=== PATIENT | female | born 1940 | race Caucasian/White ===

== ENCOUNTER → 2022-10-16 12:20 | Outpatient (BNVA) | payer MEDICARE, SELFPAY | PROVIDERS: PCP Registered Nurse; Referring Provider Registered Nurse; Visit Provider Internal Medicine | DX: E89.0 Postprocedural hypothyroidism (principal); H81.10 Benign paroxysmal vertigo, unspecified ear; Z79.890 Hormone replacement therapy | CPT/HCPCS: 99204 ==

== ENCOUNTER 2022-12-18 08:59 | Outpatient (CLI) | payer MEDICARE, SELFPAY ==
[2022-12-18 09:55] LABS: Free T4 Free Thyroxine 1.99 ng/dL (0.82-1.77); Thyroid Stimulating Hormone 0.16 uIU/mL (0.27-4.20)
[2022-12-20 00:56] LABS: T3 Total 105 ng/dL (76-181)
== END 2022-12-18 09:00 | disposition home or self-care (01) ==
PROVIDERS: PCP Registered Nurse; Visit Provider Internal Medicine
DX: E89.0 Postprocedural hypothyroidism (principal)
CPT/HCPCS: 36415; 84439; 84443; 84480

== ENCOUNTER → 2023-01-01 13:24 | Outpatient (BNVA) | payer MEDICARE, SELFPAY | PROVIDERS: PCP Registered Nurse; Visit Provider Internal Medicine | DX: E03.9 Hypothyroidism, unspecified (principal); H81.10 Benign paroxysmal vertigo, unspecified ear; R79.89 Other specified abnormal findings of blood chemistry; Z79.890 Hormone replacement therapy | CPT/HCPCS: 99214 ==

== ENCOUNTER 2023-01-15 09:00 | Outpatient (CLI) | payer MEDICARE, SELFPAY ==
[2023-01-15 10:11] LABS: Free T4 Free Thyroxine 1.22 ng/dL (0.82-1.77)
[2023-01-17 17:29] LABS: Thyroid Peroxidase Antobodies 1 IU/mL (<9)
[2023-01-22 23:45] LABS: TSH Receptor Binding Antibody <1.00 IU/L (< OR = 2.00)
== END 2023-01-15 09:01 | disposition home or self-care (01) ==
LOC: LAB 09:03
PROVIDERS: PCP Registered Nurse; Visit Provider Internal Medicine
DX: E03.9 Hypothyroidism, unspecified (principal); H81.10 Benign paroxysmal vertigo, unspecified ear
CPT/HCPCS: 36415; 83516; 84439; 86376

== ENCOUNTER 2023-03-06 08:18 | Outpatient (CLI) | payer MEDICARE, SELFPAY ==
[2023-03-06 09:09] LABS: Free T4 Free Thyroxine 1.17 ng/dL (0.82-1.77); Thyroid Stimulating Hormone 15.84 uIU/mL (0.27-4.20)
[2023-03-08 05:30] LABS: T3 Total 68 ng/dL (76-181)
== END 2023-03-06 08:19 | disposition home or self-care (01) ==
PROVIDERS: PCP Registered Nurse; Visit Provider Internal Medicine
DX: E03.9 Hypothyroidism, unspecified (principal)
CPT/HCPCS: 84439; 84443; 84480

== ENCOUNTER → 2023-03-14 13:27 | Outpatient (BNVA) | payer MEDICARE, SELFPAY | PROVIDERS: PCP Registered Nurse; Visit Provider Internal Medicine | DX: E03.9 Hypothyroidism, unspecified (principal); R79.89 Other specified abnormal findings of blood chemistry; H81.10 Benign paroxysmal vertigo, unspecified ear; F41.9 Anxiety disorder, unspecified; Z79.890 Hormone replacement therapy | CPT/HCPCS: 99214 ==

== ENCOUNTER 2023-05-09 09:04 | Outpatient (CLI) | payer MEDICARE, SELFPAY ==
[2023-05-09 10:09] LABS: Free T4 Free Thyroxine 1.35 ng/dL (0.82-1.77); Thyroid Stimulating Hormone 2.67 uIU/mL (0.27-4.20)
== END 2023-05-09 09:05 | disposition home or self-care (01) ==
PROVIDERS: PCP Registered Nurse; Visit Provider Internal Medicine
DX: E03.9 Hypothyroidism, unspecified (principal); H81.10 Benign paroxysmal vertigo, unspecified ear; R79.89 Other specified abnormal findings of blood chemistry
CPT/HCPCS: 84439; 84443

== ENCOUNTER → 2023-05-16 09:26 | Outpatient (BNVA) | payer MEDICARE, SELFPAY | PROVIDERS: PCP Registered Nurse; Visit Provider Internal Medicine | DX: E03.9 Hypothyroidism, unspecified (principal); F41.9 Anxiety disorder, unspecified; R79.89 Other specified abnormal findings of blood chemistry; R53.83 Other fatigue; Z79.890 Hormone replacement therapy | CPT/HCPCS: 99214 ==

== ENCOUNTER → 2023-09-26 12:38 | Outpatient (BNVA) | payer MEDICARE, SELFPAY | PROVIDERS: PCP Registered Nurse; Visit Provider Podiatrist Foot & Ankle Surgery | DX: L60.3 Nail dystrophy (principal); I73.9 Peripheral vascular disease, unspecified | CPT/HCPCS: 11721; 99203 ==

== ENCOUNTER 2023-11-13 08:26 | Outpatient (CLI) | payer MEDICARE, SELFPAY ==
[2023-11-13 09:20] LABS: Free T4 Free Thyroxine 1.43 ng/dL (0.82-1.77); Thyroid Stimulating Hormone 2.86 uIU/mL (0.27-4.20)
== END 2023-11-13 08:27 | disposition home or self-care (01) ==
LOC: LAB 08:28
PROVIDERS: PCP Registered Nurse; Visit Provider Internal Medicine
DX: E03.9 Hypothyroidism, unspecified (principal); H81.10 Benign paroxysmal vertigo, unspecified ear; F41.9 Anxiety disorder, unspecified; R79.89 Other specified abnormal findings of blood chemistry
CPT/HCPCS: 36415; 84439; 84443

== ENCOUNTER → 2023-11-18 07:47 | Outpatient (BNVA) | payer MEDICARE, SELFPAY | PROVIDERS: PCP Registered Nurse; Visit Provider Internal Medicine | DX: E03.9 Hypothyroidism, unspecified (principal); H81.10 Benign paroxysmal vertigo, unspecified ear; R79.89 Other specified abnormal findings of blood chemistry; F41.9 Anxiety disorder, unspecified; R53.83 Other fatigue; Z79.890 Hormone replacement therapy | CPT/HCPCS: 99214 ==

== ENCOUNTER → 2023-12-23 10:40 | Outpatient (BNVA) | payer MEDICARE, SELFPAY | PROVIDERS: PCP Registered Nurse; Visit Provider Podiatrist Foot & Ankle Surgery | DX: L60.3 Nail dystrophy (principal); I73.9 Peripheral vascular disease, unspecified | CPT/HCPCS: 11721 ==

== ENCOUNTER → 2024-03-02 13:43 | Outpatient (BNVA) | payer MEDICARE, SELFPAY | PROVIDERS: PCP Registered Nurse; Visit Provider Podiatrist Foot & Ankle Surgery | DX: L60.3 Nail dystrophy (principal); I73.9 Peripheral vascular disease, unspecified | CPT/HCPCS: 11721 ==

== ENCOUNTER → 2024-05-04 13:37 | Outpatient (BNVA) | payer MEDICARE, SELFPAY | PROVIDERS: PCP Registered Nurse; Visit Provider Podiatrist Foot & Ankle Surgery | DX: L60.3 Nail dystrophy (principal); I73.9 Peripheral vascular disease, unspecified | CPT/HCPCS: 11721 ==

== ENCOUNTER → 2024-10-13 09:24 | Outpatient (BNVA) | payer MEDICARE, SELFPAY | PROVIDERS: PCP Registered Nurse; Visit Provider Nurse Practitioner Family | DX: D22.61 Melanocytic nevi of right upper limb, including shoulder (principal); L81.4 Other melanin hyperpigmentation; L57.8 Other skin changes due to chronic exposure to nonionizing radiation; L82.0 Inflamed seborrheic keratosis; L29.89 Other pruritus; L53.8 Other specified erythematous conditions; L91.8 Other hypertrophic disorders of the skin; R20.8 Other disturbances of skin sensation; L57.0 Actinic keratosis | CPT/HCPCS: 17000; 17110; 99203 ==

== ENCOUNTER → 2024-11-30 13:22 | Outpatient (BNVA) | payer MEDICARE, SELFPAY | PROVIDERS: PCP Registered Nurse; Visit Provider Podiatrist Foot & Ankle Surgery | DX: I73.9 Peripheral vascular disease, unspecified (principal); L60.3 Nail dystrophy | CPT/HCPCS: 11721 ==

== ENCOUNTER 2025-01-24 16:08 | Emergency (ER) | payer MEDICARE, SELFPAY ==
[2025-01-24 16:15] VITALS: BP 149/77; PULSE 84; RESP 16; TEMP 36.9; O2SAT 98; BMI 22.2
[2025-01-24 16:27] VITALS: BP 157/83; PULSE 80; O2SAT 95
--- NOTE | 2025-01-24 16:30 | CTR_ITS ---
PROCEDURE INFORMATION: Exam: CT Head Without Contrast Exam date and time: 01/24/2025 4:48 PM Age: 84 years old Clinical indication: Altered mental status/memory loss and dizziness; Additional info: Encephalopathy, altered mental status TECHNIQUE: Imaging protocol: Computed tomography of the head without contrast. Radiation optimization: All CT scans at this facility use at least one of these dose optimization techniques: automated exposure control; mA and/or kV adjustment per patient size (includes targeted exams where dose is matched to clinical indication); or iterative reconstruction. COMPARISON: No relevant prior studies available. RADIATION DOSE METRICS: Total DLP (mGy-cm): 1001.69 FINDINGS: Brain: Normal. No hemorrhage. Unremarkable white matter. No mass effect. Cerebral ventricles: No ventriculomegaly. Paranasal sinuses: Visualized sinuses are unremarkable. No fluid levels. Mastoid air cells: Visualized mastoid air cells are well aerated. Bones: Unremarkable. No acute fracture. Soft tissues: Unremarkable. CT/CT head wo con* [id number] IMPRESSION: No acute intracranial abnormality.
--- NOTE | 2025-01-24 16:30 | XRR_ITS ---
PROCEDURE INFORMATION: Exam: XR Chest Exam date and time: 01/24/2025 4:51 PM Age: 84 years old Clinical indication: PT presents with complaint of weakness, dizziness, confusion and tingling in her legs. PT states symptoms have been ongoing for several months with no change PT states she was seen in ED Saturday for same issues without dx. PT ambulated into treatment room, no gait issues noted. TECHNIQUE: Imaging protocol: Radiologic exam of the chest. Views: 1 view. COMPARISON: No relevant prior studies available. FINDINGS: Lungs: Unremarkable. No consolidation. Pleural spaces: Unremarkable. No pleural effusion. No pneumothorax. Heart/Mediastinum: Unremarkable. No cardiomegaly. Bones/joints: Proximal right humeral fracture, from limited view does not appear acute. The rest of the visualized osseous structures are intact. XR/XR chest 1V portable [id number] IMPRESSION: 1. No acute findings. 2. Proximal right humeral fracture, favored chronic.
--- NOTE | 2025-01-24 16:30 | ECG_ITS ---
Ensyn Peel Test Date: 2025-01-24 Pat Name: Duarte Lopez Department: Room: Gender: Female Tax Auditor: : 1940 Requested By: Maria Isabel Yusuf Order Number: [id number] Alyce MD: Elizabeth Friend M.D. Measurements Intervals [place] Rate: 69 P: 62 WI: 203 QRS: 91 QRSD: 98 T: 72 QT: 389 QTc: 418 Interpretive Statements SINUS RHYTHM WITH OCCASIONAL VENTRICULAR PREMATURE COMPLEXES BORDERLINE RIGHT AXIS DEVIATION [QRS AXIS > 90] INCOMPLETE RIGHT BUNDLE BRANCH BLOCK [90+ ms QRS DURATION, TERMINAL R IN V1/V2, 40+ ms S IN I/aVL/V4/V5/V6] No previous ECG available for comparison Electronically Signed On 01-24-2025 21:10:24 CDT by Elizabeth Friend M.D. [email or web address]
--- NOTE | 2025-01-24 16:33 | W.ED.DIZZY ---
Documented by User: Maria Isabel Felder MD 01/24/25 17:38 HPI - Dizziness General: Chief Complaint: Dizziness Stated Complaint: tingling down body with confusion Time Seen by Provider: 01/24/25 16:26 History of Present Illness: HPI Narrative: 84-year-old female with what sounds like some worsening dementia chronic kidney disease and peripheral vascular disease and hypothyroidism who presents to the emergency room with some worsening confusion and a headache. She says she has been having a right-sided headache and some tingling in her right leg. They are concerned that she might be more confused. She is been to the doctor and to the emergency room in [place] a couple times this last week. She had called her daughter with these complaints of the neurologic issues and daughter was concerned and told her to come to the emergency room and she drove down from [place]. Related Data Home Medications ?Medication ?Instructions ?Recorded ?Confirmed bupropion HCl 150 mg tablet,12 hr 150 mg PO BID 10/16/22 01/24/25 sustained-release (Wellbutrin SR) hydroxyzine HCl 10 mg tablet 10 mg PO DAILY 01/24/25 01/24/25 levothyroxine 75 mcg tablet 75 mcg PO QAM 01/24/25 01/24/25 (Synthroid) memantine 5 mg tablet 5 mg PO BID 01/24/25 01/24/25 metoprolol tartrate 25 mg tablet 25 mg PO DAILY 01/24/25 01/24/25 Allergies Allergy/AdvReac Type Severity Reaction Status Date / Time hydromorphone Allergy Intermediate ADR-Nausea Verified 11/30/24 13:24 lovastatin Allergy Intermediate ADR-Cramping Verified 11/30/24 13:24 of the Muscles simvastatin Allergy Intermediate ADR-Cramping Verified 11/30/24 13:24 of the Muscles alendronate sodium Allergy Unknown Verified 11/30/24 13:24 sertraline Allergy Unknown Verified 11/30/24 13:24 Review of Systems Narrative: Constitutional symptoms: Negative except as documented in HPI. Skin symptoms: Negative except as documented in HPI. Eye symptoms: Negative except as documented in HPI. ENMT symptoms: Negative except as documented in HPI. Respiratory symptoms: Negative except as documented in HPI. Cardiovascular symptoms: Negative except as documented in HPI. Gastrointestinal symptoms: Negative except as documented in HPI. Genitourinary symptoms: Negative except as documented in HPI. Musculoskeletal symptoms: Negative except as documented in HPI. Neurologic symptoms: Negative except as documented in HPI. Psychiatric symptoms: Negative except as documented in HPI. Endocrine symptoms: Negative except as documented in HPI. [facility] ED PFSH: Medical History Stage 3 chronic kidney disease Peripheral arterial occlusive disease Hypothyroidism Surgical History H/O thyroidectomy Family History Other Cancer Social History Smoking and tobacco/nicotine status: never used tobacco/nicotine Physical Exam Narrative: EXAM NARRATIVE: General: Alert, no acute distress. Skin: Warm, dry. Head: Normocephalic, atraumatic. Neck: Supple, trachea midline. Eye: Extraocular movements are intact. Ears, nose, mouth and throat: mucosa moist. Cardiovascular: Regular, Normal peripheral perfusion. Respiratory: Lungs are clear to auscultation, respirations are non-labored, breath sounds are equal, Symmetrical chest wall expansion. Gastrointestinal: Soft, Nontender, Non distended Musculoskeletal: Normal ROM, no deformity. Neurological: Alert and oriented, No focal neurological deficit observed. Patient does have some mild confusion with relation to what is been going on but overall is alert and oriented and has no deficits. Psychiatric: Cooperative, appropriate mood & affect. Course Vital Signs: Vital signs: Vital Signs Temperature 98.5 F 01/24/25 16:15 Pulse Rate 66 01/24/25 18:56 Respiratory Rate 16 01/24/25 16:15 Blood Pressure 122/65 01/24/25 18:56 Pulse Oximetry 100 01/24/25 18:56 Oxygen Delivery Me thod Room Air 01/24/25 16:15 MDM - Dizziness Medical Decision Making Medical decision making: Differential diagnosis including but not limited to and based on the above HPI, review of systems and physical exam: In this patient with altered mental status: Stroke. Hypoglycemia. Metabolic encephalopathy. Infections such as pneumonia, urinary tract infection, Covid-19, Influenza. Electrolyte abnormalities such as hypernatremia. Renal failure / uremia. Hepatic encephalopathy. Hypoxemia. Hypercapnic respiratory failure. Psychosis. Drug or alcohol intoxication. Medication overdose. Orders placed to evaluate differential diagnosis based on the above differential, HPI and physical exam NIH Stroke Scale/Score (NIHSS) from [email or web address] on 01/24/2025 All calculations should be rechecked by clinician prior to use RESULT SUMMARY: 0 points NIH Stroke Scale INPUTS: 1A: Level of consciousness ?> 0 = Alert; keenly responsive 1B: Ask month and age ?> 0 = Both questions right 1C: 'Blink eyes' & 'squeeze hands' ?> 0 = Performs both tasks 2: Horizontal extraocular movements ?> 0 = Normal 3: Visual singleton ?> 0 = No visual loss 4: Facial palsy ?> 0 = Normal symmetry 5A: Left arm motor drift ?> 0 = No drift for 10 seconds 5B: Right arm motor drift ?> 0 = No drift for 10 seconds 6A: Left leg motor drift ?> 0 = No drift for 5 seconds 6B: Right leg motor drift ?> 0 = No drift for 5 seconds 7: Limb Ataxia ?> 0 = No ataxia 8: Sensation ?> 0 = Normal; no sensory loss 9: Language/aphasia ?> 0 = Normal; no aphasia 10: Dysarthria ?> 0 = Normal 11: Extinction/inattention ?> 0 = No abnormality CT head: No acute intracranial process. no intracranial hemorrhage, no evidence of infarct. no evidence of acute fracture.This was reviewed and interpreted by myself the ER physician. Chest x-ray: No acute process. No infiltrate. No pneumothorax. This was reviewed and interpreted by myself the emergency room physician. I also reviewed the radiology report. EKG: Time 1635. Rate 69. Normal sinus rhythm, No ST-T changes, PVCs, right bundle branch block, This was reviewed and interpreted by myself the ER physician at 1640 Lab Review: Laboratory results were reviewed and interpreted by myself the emergency room physician. So far lab work is unremarkable. No leukocytosis. No anemia. No renal failure. Patient care transitioned to Dr. Johnathon Ramsey at shift change. Patient awaiting urinalysis. Have discussed with family that if we do not find any underlying conditions that might be worsening her possible dementia that likely she can be evaluated by her primary or sent to a tumbling and rolling supervisor for possible dementia and that she does not need inpatient geriatric psychiatric transfer at this point. She is not a danger to herself. She is not wandering. Lab Data 01/24/25 16:43 01/24/25 16:43 Radiology Impressions Chest X-Ray 01/24/25 16:30 IMPRESSION: 1. No acute findings. 2. Proximal right humeral fracture, favored chronic. Head CT 01/24/25 16:30 IMPRESSION: No acute intracranial abnormality. Laboratory Results WBC 10.58 10^3/uL (3.29-11.43) 01/24/25 16:43 RBC 4.48 10^6/uL (3.85-5.65) 01/24/25 16:43 Hgb 13.60 g/dL (11.27-16.99) 01/24/25 16:43 Hct 41.6 % (36-47) 01/24/25 16:43 MCV 92.9 fl (85-98) 01/24/25 16:43 MCH 30.4 pg (27-33) 01/24/25 16:43 MCHC 32.7 g/dL (30-55) 01/24/25 16:43 RDW 12.8 % (12.1-15.1) 01/24/25 16:43 Plt Count 235 10^3/cmm (157-399) 01/24/25 16:43 MPV 10.0 fL (7.4-10.4) 01/24/25 16:43 Neut % (Auto) 65.9 % 01/24/25 16:43 Lymph % (Auto) 27.0 % 01/24/25 16:43 [place] % (Auto) 6.0 % 01/24/25 16:43 Eos % (Auto) 0.2 % 01/24/25 16:43 Baso % (Auto) 0.3 % 01/24/25 16:43 Neut # (Auto) 6.97 10^3/uL (1.8-7.7) 01/24/25 16:43 Lymph # (Auto) 2.9 10^3/uL (0.8-4.8) 01/24/25 16:43 [place] # (Auto) 0.6 10^3/uL (0.2-0.9) 01/24/25 16:43 Eos # (Auto) 0.0 10^3/uL (0.0-0.8) 01/24/25 16:43 Baso # (Auto) 0.0 10^3/uL (0.0-0.1) 01/24/25 16:43 Nucleated RBC % (auto) 0 % 01/24/25 16:43 Nucleated RBCs # 0.0 /100WBC 01/24/25 16:43 Sodium 140 mmol/L (136-145) 01/24/25 16:43 Potassium 3.5 mmol/L (3.5-5.1) 01/24/25 16:43 Chloride 102 mmol/L (98-107) 01/24/25 16:43 Carbon Dioxide 26 mmol/L (22-29) 01/24/25 16:43 Anion Gap 15.5 (5-19) 01/24/25 16:43 BUN 22 mg/dL (8-23) 01/24/25 16:43 Creatinine 0.8 mg/dL (0.5-0.9) 01/24/25 16:43 GFR Calculation Not Reportable 01/24/25 16:43 Glucose 122 mg/dL (65-115) H 01/24/25 16:43 Calculated Osmolality 295 mOsm/kg (285-295) 01/24/25 16:43 Calcium 9.7 mg/dL (8.5-10.5) 01/24/25 16:43 Total Bilirubin 0.4 mg/dL (0.15-1.2) 01/24/25 16:43 AST 15 U/L (0-32) 01/24/25 16:43 ALT 12 U/L (0-33) 01/24/25 16:43 Alkaline Phosphatase 104 U/L (35-105) 01/24/25 16:43 Total Protein 7.0 g/dL (6.6-8.7) 01/24/25 16:43 Albumin 4.4 g/dL (3.5-5.2) 01/24/25 16:43 Globulin 2.6 g/dL (1.3-4.6) 01/24/25 16:43 TSH 2.49 uIU/mL (0.27-4.20) 01/24/25 16:43 Urine Color Yellow (Yellow) 01/24/25 17:55 Urine Appearance Clear (CLEAR) 01/24/25 17:55 Urine pH 5 (5-7) 01/24/25 17:55 Ur Specific [place] 1.025 (1.005-1.030) 01/24/25 17:55 Urine Protein Neg (Negative) 01/24/25 17:55 Urine Glucose (UA) Norm (Normal) 01/24/25 17:55 Urine Ketones 1+ (Negative) H 01/24/25 17:55 Urine Blood 2+ (Negative) H 01/24/25 17:55 Urine Nitrate Negative (Negative) 01/24/25 17:55 Urine Bilirubin Neg (Negative) 01/24/25 17:55 Urine Urobilinogen Norm mg/dL (Negative) 01/24/25 17:55 Ur Leukocyte Esterase Trace (Negative) H 01/24/25 17:55 Urine RBC 0-2 /hpf (0-2) 01/24/25 17:55 Urine WBC 0-5 /hpf (0-5) 01/24/25 17:55 Ur Squamous Epith Cells 6-10 /hpf (0-5) 01/24/25 17:55 Amorphous Sediment Not Reportable 01/24/25 17:55 Urine Bacteria None seen /hpf (NONE) 01/24/25 17:55 Hyaline Casts 0.81 /lpf 01/24/25 17:55 Salicylates < 0.3 mg/dL (3-10) L 01/24/25 16:43 Urine Opiates Screen Negative ng/mL (Negative) 01/24/25 17:55 Acetaminophen < 5.0 ug/mL (10-30) L 01/24/25 16:43 Ur Barbiturates Screen Negative ng/mL (Negative) 01/24/25 17:55 Ur Phencyclidine Scrn Negative ng/mL (Negative) 01/24/25 17:55 Ur Amphetamines Screen Negative ng/mL (Negative) 01/24/25 17:55 U Benzodiazepines Scrn Negative ng/mL (Negative) 01/24/25 17:55 Urine Cocaine Screen Negative ng/mL (Negative) 01/24/25 17:55 U Marijuana (THC) Screen Negative ng/mL (Negative) 01/24/25 17:55 Ethyl Alcohol < 10 mg/dL (0-10) 01/24/25 16:43 Influenza A (PCR) Negative (Negative) 01/24/25 16:43 Influenza Type B (PCR) Negative (Negative) 01/24/25 16:43 RSV (PCR) Negative (Negative) 01/24/25 16:43 SARS-CoV-2 (PCR) Negative (Negative) 01/24/25 16:43 Discharge Plan Discharge Patient Disposition: Home Clinical Impression: Change in mental status, Dizziness Condition: Stable Prescriptions: No Action bupropion HCl [Wellbutrin SR] 150 mg tablet sustained-release 12 hr 150 mg PO BID levothyroxine [Synthroid] 75 mcg tablet 75 mcg PO QAM hydroxyzine HCl 10 mg tablet 10 mg PO DAILY memantine 5 mg tablet 5 mg PO BID metoprolol tartrate 25 mg tablet 25 mg PO DAILY Discharge Orders: Discharge ED (Routine); Ordered 01/24/25 Ordered By: Johnathon Ramsey Referrals: Nevaeh Keenan [Primary Care Provider] - 1-3 days Patient Instructions: Altered Mental Status (ED), Dizziness (ED), Opioid Safety, Pain Management Activity Restrictions/Additional Instructions: Call your doctor tomorrow for an outpatient follow-up appointment. Let them know you were seen here, as further outpatient workup may be needed. Return for any worsening or new concerns. Print Language: Prydeinig Coding Level of Care Code ED Double Head Machine Operator for Chg Fwd Documented by User: Johnathon Ramsey DO 01/24/25 20:34 HPI - Dizziness General: Chief Complaint: Dizziness Stated Complaint: tingling down body with confusion Time Seen by Provider: 01/24/25 16:26 Related Data Home Medications ?Medication ?Instructions ?Recorded ?Confirmed bupropion HCl 150 mg tablet,12 hr 150 mg PO BID 10/16/22 01/24/25 sustained-release (Wellbutrin SR) hydroxyzine HCl 10 mg tablet 10 mg PO DAILY 01/24/25 01/24/25 levothyroxine 75 mcg tablet 75 mcg PO QAM 01/24/25 01/24/25 (Synthroid) memantine 5 mg tablet 5 mg PO BID 01/24/25 01/24/25 metoprolol tartrate 25 mg tablet 25 mg PO DAILY 01/24/25 01/24/25 Allergies Allergy/AdvReac Type Severity Reaction Status Date / Time hydromorphone Allergy Intermediate ADR-Nausea Verified 11/30/24 13:24 lovastatin Allergy Intermediate ADR-Cramping Verified 11/30/24 13:24 of the Muscles simvastatin Allergy Intermediate ADR-Cramping Verified 11/30/24 13:24 of the Muscles alendronate sodium Allergy Unknown Verified 11/30/24 13:24 sertraline Allergy Unknown Verified 11/30/24 13:24 PFSH ED PFSH: Medical History Stage 3 chronic kidney disease Peripheral arterial occlusive disease Hypothyroidism Surgical History H/O thyroidectomy Family History Other Cancer Social History Smoking and tobacco/nicotine status: never used tobacco/nicotine Course Vital Signs: Vital signs: Vital Signs Temperature 98.5 F 01/24/25 16:15 Pulse Rate 66 01/24/25 18:56 Respiratory Rate 16 01/24/25 16:15 Blood Pressure 122/65 01/24/25 18:56 Pulse Oximetry 100 01/24/25 18:56 Oxygen Delivery Me thod Room Air 01/24/25 16:15 MDM - Dizziness Medical Decision Making Medical decision making: Differential diagnosis including but not limited to and based on the above HPI, review of systems and physical exam: In this patient with altered mental status: Stroke. Hypoglycemia. Metabolic encephalopathy. Infections such as pneumonia, urinary tract infection, Covid-19, Influenza. Electrolyte abnormalities such as hypernatremia. Renal failure / uremia. Hepatic encephalopathy. Hypoxemia. Hypercapnic respiratory failure. Psychosis. Drug or alcohol intoxication. Medication overdose. Orders placed to evaluate differential diagnosis based on the above differential, HPI and physical exam NIH Stroke Scale/Score (NIHSS) from [employer] on 01/24/2025 All calculations should be rechecked by clinician prior to use RESULT SUMMARY: 0 points NIH Stroke Scale INPUTS: 1A: Level of consciousness ?> 0 = Alert; keenly responsive 1B: Ask month and age ?> 0 = Both questions right 1C: 'Blink eyes' & 'squeeze hands' ?> 0 = Performs both tasks 2: Horizontal extraocular movements ?> 0 = Normal 3: Visual singleton ?> 0 = No visual loss 4: Facial palsy ?> 0 = Normal symmetry 5A: Left arm motor drift ?> 0 = No drift for 10 seconds 5B: Right arm motor drift ?> 0 = No drift for 10 seconds 6A: Left leg motor drift ?> 0 = No drift for 5 seconds 6B: Right leg motor drift ?> 0 = No drift for 5 seconds 7: Limb Ataxia ?> 0 = No ataxia 8: Sensation ?> 0 = Normal; no sensory loss 9: Language/aphasia ?> 0 = Normal; no aphasia 10: Dysarthria ?> 0 = Normal 11: Extinction/inattention ?> 0 = No abnormality CT head: No acute intracranial process. no intracranial hemorrhage, no evidence of infarct. no evidence of acute fracture.This was reviewed and interpreted by myself the ER physician. Chest x-ray: No acute process. No infiltrate. No pneumothorax. This was reviewed and interpreted by myself the emergency room physician. I also reviewed the radiology report. EKG: Time 1635. Rate 69. Normal sinus rhythm, No ST-T changes, PVCs, right bundle branch block, This was reviewed and interpreted by myself the ER physician at 1640 Lab Review: Laboratory results were reviewed and interpreted by myself the emergency room physician. So far lab work is unremarkable. No leukocytosis. No anemia. No renal failure. Patient care transitioned to Dr. Johnathon Ramsey at shift change. Patient awaiting urinalysis. Have discussed with family that if we do not find any underlying conditions that might be worsening her possible dementia that likely she can be evaluated by her primary or sent to a tumbling and rolling supervisor for possible dementia and that she does not need inpatient geriatric psychiatric transfer at this point. She is not a danger to herself. She is not wandering. Patient picked up at shift change. Urinalysis is negative for urinary tract infection. No definite cause of dizziness, mental status change identified. As above, outpatient follow-up is warranted. Inpatient treatment not clinically warranted at this point. She may return for any worsening symptoms. Lab Data 01/24/25 16:43 01/24/25 16:43 Radiology Impressions Chest X-Ray 01/24/25 16:30 IMPRESSION: 1. No acute findings. 2. Proximal right humeral fracture, favored chronic. Head CT 01/24/25 16:30 IMPRESSION: No acute intracranial abnormality. Laboratory Results WBC 10.58 10^3/uL (3.29-11.43) 01/24/25 16:43 RBC 4.48 10^6/uL (3.85-5.65) 01/24/25 16:43 Hgb 13.60 g/dL (11.27-16.99) 01/24/25 16:43 Hct 41.6 % (36-47) 01/24/25 16:43 MCV 92.9 fl (85-98) 01/24/25 16:43 MCH 30.4 pg (27-33) 01/24/25 16:43 MCHC 32.7 g/dL (30-55) 01/24/25 16:43 RDW 12.8 % (12.1-15.1) 01/24/25 16:43 Plt Count 235 10^3/cmm (157-399) 01/24/25 16:43 MPV 10.0 fL (7.4-10.4) 01/24/25 16:43 Neut % (Auto) 65.9 % 01/24/25 16:43 Lymph % (Auto) 27.0 % 01/24/25 16:43 [place] % (Auto) 6.0 % 01/24/25 16:43 Eos % (Auto) 0.2 % 01/24/25 16:43 Baso % (Auto) 0.3 % 01/24/25 16:43 Neut # (Auto) 6.97 10^3/uL (1.8-7.7) 01/24/25 16:43 Lymph # (Auto) 2.9 10^3/uL (0.8-4.8) 01/24/25 16:43 [place] # (Auto) 0.6 10^3/uL (0.2-0.9) 01/24/25 16:43 Eos # (Auto) 0.0 10^3/uL (0.0-0.8) 01/24/25 16:43 Baso # (Auto) 0.0 10^3/uL (0.0-0.1) 01/24/25 16:43 Nucleated RBC % (auto) 0 % 01/24/25 16:43 Nucleated RBCs # 0.0 /100WBC 01/24/25 16:43 Sodium 140 mmol/L (136-145) 01/24/25 16:43 Potassium 3.5 mmol/L (3.5-5.1) 01/24/25 16:43 Chloride 102 mmol/L (98-107) 01/24/25 16:43 Carbon Dioxide 26 mmol/L (22-29) 01/24/25 16:43 Anion Gap 15.5 (5-19) 01/24/25 16:43 BUN 22 mg/dL (8-23) 01/24/25 16:43 Creatinine 0.8 mg/dL (0.5-0.9) 01/24/25 16:43 GFR Calculation Not Reportable 01/24/25 16:43 Glucose 122 mg/dL (65-115) H 01/24/25 16:43 Calculated Osmolality 295 mOsm/kg (285-295) 01/24/25 16:43 Calcium 9.7 mg/dL (8.5-10.5) 01/24/25 16:43 Total Bilirubin 0.4 mg/dL (0.15-1.2) 01/24/25 16:43 AST 15 U/L (0-32) 01/24/25 16:43 ALT 12 U/L (0-33) 01/24/25 16:43 Alkaline Phosphatase 104 U/L (35-105) 01/24/25 16:43 Total Protein 7.0 g/dL (6.6-8.7) 01/24/25 16:43 Albumin 4.4 g/dL (3.5-5.2) 01/24/25 16:43 Globulin 2.6 g/dL (1.3-4.6) 01/24/25 16:43 TSH 2.49 uIU/mL (0.27-4.20) 01/24/25 16:43 Urine Color Yellow (Yellow) 01/24/25 17:55 Urine Appearance Clear (CLEAR) 01/24/25 17:55 Urine pH 5 (5-7) 01/24/25 17:55 Ur Specific [place] 1.025 (1.005-1.030) 01/24/25 17:55 Urine Protein Neg (Negative) 01/24/25 17:55 Urine Glucose (UA) Norm (Normal) 01/24/25 17:55 Urine Ketones 1+ (Negative) H 01/24/25 17:55 Urine Blood 2+ (Negative) H 01/24/25 17:55 Urine Nitrate Negative (Negative) 01/24/25 17:55 Urine Bilirubin Neg (Negative) 01/24/25 17:55 Urine Urobilinogen Norm mg/dL (Negative) 01/24/25 17:55 Ur Leukocyte Esterase Trace (Negative) H 01/24/25 17:55 Urine RBC 0-2 /hpf (0-2) 01/24/25 17:55 Urine WBC 0-5 /hpf (0-5) 01/24/25 17:55 Ur Squamous Epith Cells 6-10 /hpf (0-5) 01/24/25 17:55 Amorphous Sediment Not Reportable 01/24/25 17:55 Urine Bacteria None seen /hpf (NONE) 01/24/25 17:55 Hyaline Casts 0.81 /lpf 01/24/25 17:55 Salicylates < 0.3 mg/dL (3-10) L 01/24/25 16:43 Urine Opiates Screen Negative ng/mL (Negative) 01/24/25 17:55 Acetaminophen < 5.0 ug/mL (10-30) L 01/24/25 16:43 Ur Barbiturates Screen Negative ng/mL (Negative) 01/24/25 17:55 Ur Phencyclidine Scrn Negative ng/mL (Negative) 01/24/25 17:55 Ur Amphetamines Screen Negative ng/mL (Negative) 01/24/25 17:55 U Benzodiazepines Scrn Negative ng/mL (Negative) 01/24/25 17:55 Urine Cocaine Screen Negative ng/mL (Negative) 01/24/25 17:55 U Marijuana (THC) Screen Negative ng/mL (Negative) 01/24/25 17:55 Ethyl Alcohol < 10 mg/dL (0-10) 01/24/25 16:43 Influenza A (PCR) Negative (Negative) 01/24/25 16:43 Influenza Type B (PCR) Negative (Negative) 01/24/25 16:43 RSV (PCR) Negative (Negative) 01/24/25 16:43 SARS-CoV-2 (PCR) Negative (Negative) 01/24/25 16:43 All radiology interpretation(s) finalized by discharge Discharge Plan Discharge Patient Disposition: Home Clinical Impression: Change in mental status, Dizziness Condition: Stable Prescriptions: No Action bupropion HCl [Wellbutrin SR] 150 mg tablet sustained-release 12 hr 150 mg PO BID levothyroxine [Synthroid] 75 mcg tablet 75 mcg PO QAM hydroxyzine HCl 10 mg tablet 10 mg PO DAILY memantine 5 mg tablet 5 mg PO BID metoprolol tartrate 25 mg tablet 25 mg PO DAILY Discharge Orders: Discharge ED (Routine); Ordered 01/24/25 Ordered By: Johnathon Ramsey Referrals: Nevaeh Keenan [Primary Care Provider] - 1-3 days Patient Instructions: Altered Mental Status (ED), Dizziness (ED), Opioid Safety, Pain Management Activity Restrictions/Additional Instructions: Call your doctor tomorrow for an outpatient follow-up appointment. Let them know you were seen here, as further outpatient workup may be needed. Return for any worsening or new concerns. Print Language: Prydeinig Coding Level of Care Code ED Double Head Machine Operator for Dimitri Anguiano
[2025-01-24 16:48] LABS: Basophils % 0.3 %; Eosinophils % 0.2 %; Hematocrit 41.6 % (36-47); Lymphocytes # 2.9 10^3/uL (0.8-4.8); Mean Corpuscular HGB Conc 32.7 g/dL (30-55); Mean Corpuscular Hemoglobin 30.4 pg (27-33); Mean Corpuscular Volume 92.9 fl (85-98); Monocytes # 0.6 10^3/uL (0.2-0.9); Neutrophils # 6.97 10^3/uL (1.8-7.7); Neutrophils % 65.9 %; Nucleated Red Blood Cells % 0 %; Platelet Count 235 10^3/cmm (157-399); Red Blood Count 4.48 10^6/uL (3.85-5.65); Red Cell Distribution Width 12.8 % (12.1-15.1); White Blood Count 10.58 10^3/uL (3.29-11.43)
[2025-01-24 16:57] VITALS: PULSE 65; O2SAT 98
[2025-01-24 17:21] LABS: Alanine Aminotransferase 12 U/L (0-33); Albumin Level 4.4 g/dL (3.5-5.2); Alkaline Phosphatase 104 U/L (35-105); Anion Gap 15.5 (5-19); Aspartate Amino Transferase 15 U/L (0-32); Blood Urea Nitrogen 22 mg/dL (8-23); Calcium 9.7 mg/dL (8.5-10.5); Carbon Dioxide 26 mmol/L (22-29); Chloride 102 mmol/L (98-107); Creatinine Clr Calc Pharmacy 50.9088; Globulin 2.6 g/dL (1.3-4.6); Glucose 122 mg/dL (65-115); Osmolality Calculated 295 mOsm/kg (285-295); Potassium 3.5 mmol/L (3.5-5.1); Sodium 140 mmol/L (136-145); Thyroid Stimulating Hormone 2.49 uIU/mL (0.27-4.20); Total Bilirubin 0.4 mg/dL (0.15-1.2)
[2025-01-24 17:22] LABS: Acetaminophen < 5.0 ug/mL (10-30); Alcohol Level < 10 mg/dL (0-10); Salicylate < 0.3 mg/dL (3-10)
[2025-01-24 17:27] VITALS: PULSE 68; O2SAT 98
[2025-01-24 17:48] LABS: Influenza A NEGATIVE (Negative); Influenza B NEGATIVE (Negative); Respiratory Syncytial Virus Ce NEGATIVE (Negative); SARS-CoV-2 PCR NEGATIVE (Negative)
[2025-01-24 17:57] VITALS: BP 168/65; PULSE 76; O2SAT 100
[2025-01-24 18:05] LABS: Bacteria Urine None Seen /hpf; Hyaline Casts Urine 0.81 /lpf; RBC Urine 0-2 /hpf (0-2); WBC Urine 0-5 /hpf (0-5)
[2025-01-24 18:08] LABS: Bilirubin Urine Neg (Negative); Blood Urine 2+ (Negative); Glucose Urine UA Norm (Normal); Ketones Urine 1+ (Negative); Leukocyte Esterase Urine Trace (Negative); Nitrate Urine Negative (Negative); Protein Urine Neg (Negative); Specific Gravity, Urine 1.025 (1.005-1.030); Urine Appearance Clear (CLEAR); Urine Color Yellow (Yellow); Urobilinogen Urine Norm (Negative); pH Urine 5 (5-7)
[2025-01-24 18:19] LABS: Amphetamines Screen Urine Negative (Negative); Barbiturates Screen Urine Negative (Negative); Benzodiazepines Screen Urine Negative (Negative); Cocaine Screen Urine Negative (Negative); Opiate Screen Urine Negative (Negative); PCP Screen Urine Negative (Negative); THC Screen Urine Negative (Negative)
[2025-01-24 18:56] VITALS: BP 122/65; PULSE 66; O2SAT 100
== END 2025-01-24 18:57 | disposition home or self-care (01) ==
PROVIDERS: Emergency Medicine; Emergency Provider Emergency Medicine; PCP Registered Nurse
DX: R41.82 Altered mental status, unspecified (principal); R42 Dizziness and giddiness; Z11.52 Encounter for screening for COVID-19; N18.30 Chronic kidney disease, stage 3 unspecified
CPT/HCPCS: 36415; 70450; 71045; 80053; 80306; 80307; 81001; 84443; 85025; 87637; 93005; 99285

== ENCOUNTER 2025-03-17 10:07 | Outpatient (CLI) | payer MEDICARE, SELFPAY ==
--- NOTE | 2025-03-17 10:10 | FL_ITS ---
WS: [id number] FL barium swallow modifd [id number] REASON FOR EXAM: Other dysphagia FLUOROSCOPY TIME: 4min [id number] # OF SPOT FILMS: 0 TECHNIQUE: Examination was supervised by the speech therapy department. Patient was examined in the sitting upright position, lateral projection. The swallowing of varying consistencies of barium was monitored fluoroscopically and video recorded. FINDINGS: Penetration of liquid barium into the laryngeal vestibule without aspiration. 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 Thoracic esophageal dysmotility with mild tertiary contractions. Prolonged retention of contrast with reflux from the midesophagus to near the thoracic inlet. FL/FL barium swallow modifd [id number] IMPRESSION: Laryngeal vestibule penetration without aspiration. Prominent/significant cricopharyngeal impingement on the cervical esophagus. Thoracic esophageal dysmotility as above. A detailed analysis of the swallowing will be rendered by the speech therapy de partment.
== END 2025-03-17 10:08 | disposition home or self-care (01) ==
PROVIDERS: PCP Registered Nurse; Visit Provider Nurse Practitioner Family
DX: R13.19 Other dysphagia (principal); R93.89 Abnormal findings on diagnostic imaging of other specified body structures; K22.4 Dyskinesia of esophagus; K22.2 Esophageal obstruction
CPT/HCPCS: 74230; 92611

== ENCOUNTER → 2025-10-13 09:03 | Outpatient (BNVA) | payer MEDICARE, SELFPAY | PROVIDERS: PCP Registered Nurse; Visit Provider Nurse Practitioner Family | DX: D48.5 Neoplasm of uncertain behavior of skin (principal); L57.0 Actinic keratosis; L81.4 Other melanin hyperpigmentation; L57.8 Other skin changes due to chronic exposure to nonionizing radiation; D18.01 Hemangioma of skin and subcutaneous tissue; D22.61 Melanocytic nevi of right upper limb, including shoulder | CPT/HCPCS: 11102; 17000; 99213 ==